=== PATIENT | male | born 2000 | race Two or more races ===

== ENCOUNTER 2021-12-31 01:12 | Emergency (ER) | payer OTHER ==
[~2021-12-31] VITALS: Ht 182.9 cm; Wt 83.0 kg
[2021-12-31] MEDS ORDERED: VITAMIN C WIT1000 MG PO (05:00)
[2021-12-31] MEDS ORDERED: ACETAMINOPHEN650 M2 PO (05:00)
[2021-12-31] MEDS ORDERED: PROAIR RESPICL90 MCG IH (05:00)
[2021-12-31] MEDS ORDERED: MOLNUPIRAVIR (200 MG PO (05:00)
[2021-12-31] MEDS ORDERED: MUCINEX DM ER1 EAC1 PO (05:00)
== END 2021-12-31 05:19 | disposition home or self-care (01) ==
LOC: ER 01:12
DX: U07.1 COVID-19 (principal); B34.9 Viral infection, unspecified

== ENCOUNTER 2023-06-24 17:12 | Emergency (ER) | payer OTHER ==
[~2023-06-24] VITALS: Ht 180.3 cm; Wt 89.4 kg
[~2023-06-24 17:12] MED LIST: ACETAMINOPHEN650 M2 PO; MOLNUPIRAVIR (200 MG PO; MUCINEX DM ER1 EAC1 PO; PROAIR RESPICL90 MCG IH; VITAMIN C WIT1000 MG PO
[2023-06-24] MEDS ORDERED: BIKTARVY 50-201 EACH PO (17:48)
[2023-06-24 20:06] LABS: HEMATOCRIT 43.8 % (39.0-48.0); HEMOGLOBIN 14.8 g/dL (13-16.00); MEAN CELL VOLUME 97.8 fL (80.0-100.00); MEAN CORPUSCULAR HEMOGLOBIN 33.1 pg (27.00-32.0); MEAN CORPUSCULAR HGB CONC 33.8 g/dl (32.0-36.0); PLATELET COUNT 234 K/uL (150-450); RED BLOOD COUNT 4.48 M/uL (4.00-6.00); RED CELL DISTRIBUTION WIDTH 14.7 % (11.5-14.5)
== END 2023-06-24 21:52 | disposition home or self-care (01) ==
LOC: ER 17:12
PROVIDERS: General Practice
DX: U07.1 COVID-19 (principal); R53.81 Other malaise